=== PATIENT | female | born 1995 | race African-American/Black ===

== ENCOUNTER 2021-01-02 12:06 | Emergency (ER) | payer OTHER ==
[~2021-01-02] VITALS: Ht 157.5 cm; Wt 64.4 kg
[2021-01-02 12:41] VITALS: BP 111/69
== END 2021-01-02 12:43 | disposition home or self-care (01) ==
LOC: ER 12:06
DX: O36.8120 Decreased fetal movements, second trimester, not applicable or unspecified (principal); Z3A.24 24 weeks gestation of pregnancy